=== PATIENT | female | born 1955 | race Caucasian/White ===

== ENCOUNTER 2018-01-10 08:28 | Day surgery (SDC) | payer MEDICAID ==
[2018-01-09 11:56] VITALS: BMI 30.7
[2018-01-10 09:27] VITALS: O2SAT 100
[2018-01-10] MEDS ORDERED: HYDROmorphone 0.5 mg/0.5 ml ISec IVP PRN (09:57)
[2018-01-10] MEDS ORDERED: Propofol 10 mg/ml Inj (20 ML) ONE ×2 (10:06→10:56)
[2018-01-10] MEDS ORDERED: Midazolam 2 MG/2 ML VIAL ONE ×2 (10:06→10:56)
[2018-01-10 12:52] VITALS: BP 121/70; PULSE 67; RESP 18; TEMP 97
--- NOTE | 2018-01-11 03:46 | OP ---
PROCEDURE DATE: 01/10/2018 PREOPERATIVE DIAGNOSIS: A 62-year-old 2, para 2 with postmenopausal bleeding and endometrial thickening. POSTOPERATIVE DIAGNOSIS: A 62-year-old 2, para 2 with postmenopausal bleeding and endometrial thickening. SURGEON: Jaret Ernst MD NURSE TRANSITIONAL: None. ANESTHESIA: General anesthesia. ANESTHESIOLOGIST: Sandeep Ricci MD COMPLICATIONS: None. PROCEDURE PERFORMED: MyoSure dilatation and curettage, hysteroscopy. ESTIMATED BLOOD LOSS: 20 mL. DESCRIPTION OF PROCEDURE: After informed consent was obtained, the patient was brought to the operating room, placed on the table where general anesthesia was given. Once the anesthesia was given, the patient was prepped and draped in a normal sterile fashion. Examination under anesthesia revealed the uterus to be 8 weeks' size. No pelvic or adnexal masses. The anterior lip of the cervix was grasped with a tenaculum. Gentle dilation of the cervix was done, found the polyp on the posterior wall of the uterus. Pictures were taken. After that, a decision was made to use the MyoSure. MyoSure was used to take out the polyp which was sent to Pathology. Sharp curettage of the endometrial wall was taken. It was ECC and was sent to Pathology. After that, the tenaculum was taken out. was 190. The patient tolerated the procedure well. Lap, sponge and instrument counts were correct x2. Jaret Ernst MD
== END 2018-01-10 12:54 | disposition home or self-care (01) ==
LOC: C.SDS 08:28
PROVIDERS: ATTEND Obstetrics & Gynecology
DX: N85.00 Endometrial hyperplasia, unspecified (principal); N95.0 Postmenopausal bleeding
CPT/HCPCS: 58558; 88305; J1100; J1885; J2250; J2405; J2704; J3010